=== PATIENT | female | born 1975 | race Two or more races ===

== ENCOUNTER 2020-01-07 13:16 | Outpatient (CLI) | payer OTHER | END 2020-01-07 13:27 | disposition home or self-care (01) | LOC: SONOGRAMA 13:16 → MAMO-SONO 13:45 | PROVIDERS: ATTEND Physical Medicine & Rehabilitation Hospice and Palliative Medicine | DX: S93.402A Sprain of unspecified ligament of left ankle, initial encounter (principal) ==